=== PATIENT | male | born 2000 | race Caucasian/White ===

== ENCOUNTER 2023-03-24 01:30 | Emergency (ER) | payer BC, OTHER ==
[2023-03-24] MEDS: Sodium Chloride 0.9% 1,000 ML IV ONE (01:45)
[2023-03-24] MEDS: Ketorolac 30 MG/ML SDV IVPUSH ONE (01:50)
[2023-03-24] MEDS: diphenhydrAMINE 50 MG/ML SDV IVPUSH ONE (02:25)
[2023-03-24] MEDS: Prochlorperazine 10 MG in Sodium Chloride 0.9% 50 ML IV ONE (02:28)
[2023-03-24] MEDS: diphenhydrAMINE 50 MG/ML SDV ONE (02:31)
[2023-03-24] MEDS: Prochlorperazine 10 MG/2 ML SDV ONE (02:33)
== END 2023-03-24 06:00 | disposition home or self-care (01) ==
LOC: LB.ED 01:30
DX: G43.909 Migraine, unspecified, not intractable, without status migrainosus (principal)
CPT/HCPCS: 96361; 96365; 96375; 99283; J0780; J1200; J1885; J3490; J7030

== ENCOUNTER 2023-12-10 17:12 | Emergency (ER) | payer BC ==
[2023-12-10] MEDS: Lidocaine 1% with EPINEPHrine 1:100,000 20 ML MDV INJECT ONE (17:42)
[2023-12-10] MEDS: Diphtheria,Pertussis(Acell),Tetanus Vaccine 0.5 ML Syringe IM ONE (17:43)
[2023-12-10] MEDS ORDERED: Cephalexin 500 MG Cap ONE (17:45)
== END 2023-12-10 17:51 | disposition home or self-care (01) ==
LOC: LB.ED 17:12
DX: S01.411A Laceration without foreign body of right cheek and temporomandibular area, initial encounter (principal); F17.210 Nicotine dependence, cigarettes, uncomplicated; Z23 Encounter for immunization; W20.8XXA Other cause of strike by thrown, projected or falling object, initial encounter
CPT/HCPCS: 12006; 12013; 90471; 90715; 99282-25; 99283; A9270-GY

== ENCOUNTER 2023-12-10 21:28 | Emergency (ER) | payer BC ==
[2023-12-10] MEDS: Sodium Chloride 0.9% 1,000 ML IV ONE (21:52)
[2023-12-10 22:01] LABS: BASOPHILS ABSOLUTE AUTO 0.01 K/uL (0.02-0.10); BASOPHILS PERCENT AUTO 0.1 % (0.0-0.5); EOSINOPHILS ABSOLUTE AUTO 0.09 K/uL (0.04-0.40); EOSINOPHILS PERCENT AUTO 1.3 % (1.0-5.0); HEMATOCRIT 40.4 % (40.0-54.0); LYMPHOCYTES ABSOLUTE AUTO 1.41 K/uL (1.50-4.00); LYMPHOCYTES PERCENT AUTO 19.8 % (20.0-40.0); MEAN CORPUSCULAR HGB CONC 34.7 g/dL (31.0-35.0); MEAN CORPUSCULAR VOLUME 87 fL (76-96); MEAN PLATELET VOLUME 11.8 fL (6.0-10.0); MONOCYTES ABSOLUTE AUTO 0.37 K/uL (0.20-0.80); MONOCYTES PERCENT AUTO 5.2 % (3.0-10.0); NEUTROPHILS ABSOLUTE AUTO 5.23 K/uL (2.00-7.50); NEUTROPHILS PERCENT AUTO 73.6 % (45.0-70.0); PLATELET COUNT,PLT 153 K/uL (150-400); RED BLOOD CELL COUNT 4.67 M/uL (4.50-6.50); RED CELL DISTRIBUTION WIDTH 12.5 % (11.0-16.0); WHITE BLOOD CELL COUNT,WBC 7.1 K/uL (4.0-11.0)
[2023-12-10] MEDS ORDERED: Sodium Chloride 0.9% 10 ML Syringe FLUSH PRN (22:09)
[2023-12-10 22:15] LABS: A/G RATIO 1.5 (0.8-2.0); BILIRUBIN TOTAL 0.4 mg/dL (0.0-1.0); BUN/CREATININE RATIO 15.5 (6-25); CALCIUM 8.8 mg/dL (8.5-10.1); CARBON DIOXIDE,CO2 27.7 mmol/L (21.0-32.0); CREATININE 1.03 mg/dL (0.70-1.30); EST CRCL DRUG DOSING (CG) 116.46 mL/min; POTASSIUM,K 3.7 mmol/L (3.5-5.1); PROTEIN TOTAL,TP 6.6 g/dL (6.4-8.2)
== END 2023-12-10 23:00 | disposition home or self-care (01) ==
LOC: LB.ED 21:28
DX: R55 Syncope and collapse (principal); F17.210 Nicotine dependence, cigarettes, uncomplicated
CPT/HCPCS: 36415; 70450; 70486; 80053; 85025; 93005; 93010; 96360; 99283; 99284-25; J7030